=== PATIENT | male | born 1945 | race Caucasian/White ===

== ENCOUNTER → 2016-11-11 | Outpatient (CLI) | payer OTHER ==
[~2016-11-11] MED LIST: ASPI81TA28 PO; BNC20 PO; CHOL100010 PO; DEXL60CA4 PO; FEXO1TAB49 PO; FLM4 PO; LEVO100T PO; LEVO125T72 PO; MULT-506 PO; OMEG10007 PO; SIMV20TA2 PO
[2016-11-11 14:44] LABS: BASO % 0.4 %; BASO ABS # 0.02 K/uL (0-0.2); COMPLETE YES; HEMATOCRIT 43.2 % (42-52); IG% 0.2 %; LYMPH % 31.5 %; LYMPH ABS # 1.76 K/uL (1.2-3.4); MEAN CELL VOLUME 94.1 fL (80-100); MEAN CORPUSCULAR HEMOGLOBIN 32.2 pg (25-34); MEAN CORPUSCULAR HGB CONC 34.3 g/dl (32-36); MEAN PLATELET VOLUME 10.9 fL (7.4-10.4); MONO % 11.1 %; NEUT % 54.8 %; PLATELET COUNT 187 K/uL (130-400); RED BLOOD COUNT 4.59 M/uL (4.7-6.1); WHITE BLOOD COUNT 5.59 K/uL (4.8-10.8)
[2016-11-11 14:49] LABS: POTASSIUM 3.8 mmol/L (3.5-5.1)
[2016-11-11 14:54] LABS: PARTIAL THROMBOPLASTIN RATIO 0.9; PROTHROMBIN TIME (PATIENT) 10.7 SECONDS (9.0-12.0)
== END | disposition home or self-care (01) ==
LOC: C.LAB 13:30
DX: Z01.818 Encounter for other preprocedural examination (principal); K21.9 Gastro-esophageal reflux disease without esophagitis

== ENCOUNTER → 2016-11-28 | Day surgery (SDC) | payer OTHER ==
[2016-11-03 11:35] VITALS: Ht 181.6 cm; Wt 110.9 kg
[~2016-11-28] VITALS: Ht 181.6 cm; Wt 110.9 kg
[~2016-11-28] MED LIST changes: +ATROPINE SULFATE 0.1 MG/ML 5ML SYR IV PRN; +CEFAZOLIN 2000 MG/60 ML D5W IV SCH; +DEXAMETHASONE SOD INJ 4 MG/ML VIAL ONE; +EpHEDrine SULFATE INJ 50 MG/ML AMP IV PRN; +EpINEphrine INJ 1MG/ML AMP 1 MG/ML AMP ONE; +FENTANYL CITRATE INJ 50 MCG/1 ML 2 ML VIAL IV PRN; +FENTANYL CITRATE INJ 50 MCG/1 ML 2 ML VIAL ONE; +GLYCOPYRROLATE INJ 0.2 MG/ML VIAL ONE; +HYDROCODONE/ACETAMOPHEN 5/325MG TAB PO PRN; +HYDROmorphone INJ 1 MG/ML SYR IV PRN; +LACTATED RINGER'S 1000ML 1,000 ML IV SCH; +LIDOCAINE 4% MPF SOAK 5 ML = 1 DOSE TOP ONE; +LIDOCAINE HCL 2% 2 ML VIAL (20MG/ML) ONE; +LIDOCAINE/EPINEPHRINE 1% INJ 50 ML VIAL ONE; +MIDAZOLAM HCL 1 MG/ML 2ML VIAL ONE; +NEOSTIGMINE METHYLSULFATE 5 MG/5 ML SYR ONE; +ONDANSETRON INJ 2 MG/ML 2 ML VIAL IV PRN; +ONDANSETRON INJ 2 MG/ML 2 ML VIAL ONE; +OXYMETAZOLINE HCL 0.05% NA SPR 15 ML BTL NAE SCH; +OXYMETAZOLINE HCL 0.05% NA SPR 15 ML BTL PRN; +PROPOFOL IV EMULSION 10 MG/ML 20 ML VIAL IV ONE
--- NOTE | 2016-11-28 12:08 | History & Physical Bridge - [place] ---
H&P Re-Evaluation Bridge Note: I have examined the patient, reviewed the History & Physical and in the interval since the performance of the History & Physical I have noted the following changes of clinical significance: No changes noted
--- NOTE | 2016-11-28 12:29 | History and Physical: Surg Cnt ---
History & Physical Date Nov 28, 2016. Chief Complaint CHRONIC SINUSITIS, RIGHT SEPTAL DEVIATION, AND BILATERAL INFERIOR TURBINATE HYPERTROPHY History of Present Illness The patient is a 71 year old male with complaints of CHRONIC SINUSITIS, RIGHT SEPTAL DEVIATION, AND BILATERAL INFERIOR TURBINATE HYPERTROPHY WITH SYMPTOMS DESPITE MAXIMAL MEDICAL RX. PT S/P B FESS/SEPTOPLASTY BY ANOTHER SURGEON IN THE PAST. PT WITH POSSIBLE L SINONASAL POLYP ON EXAM. Past Medical/Surgical History Medical Problems: (1) Asthma (2) Hypertension SIMENTAL'S ESOPHAGITIS, GERD, H/O C DIFF COLITIS, ETD, MIXED HL, IRMA Surgical Problems: (1) History of thyroidectomy (2) History of tonsillectomy and adenoidectomy S/P B FESS/SEPTOPLASTY IN THE PAST Additional History Hepatic Disease: No Endocrine Disorder: No Kidney Disease: No Hypertension: No Heart Disease: No Bleeding Tendencies: No Infectious Diseases: No Allergies Coded Allergies: No Known Allergies (Unverified , UNKNOWN, 11/28/16) Home Medications Scheduled Aspirin (Aspirin Ec), 81 MG PO HS Cholecalciferol (Vitamin D), 1,000 INTER.UNIT PO QAM Dexlansoprazole (Dexilant), 1 CAP PO QPM Fish Oil (Edison-3), 1 CAP PO QAM Levothyroxine Sodium (Synthroid), 100 MCG PO AM Levothyroxine Sodium (Synthroid), 125 MCG PO QAM Multivitamin (Multivitamin), 1 TAB PO QAM Olmesartan Medoxomil (Benicar *), 20 MG PO QAM Simvastatin (Zocor), 20 MG PO QAM Tamsulosin Hcl (Flomax *), 0.4 MG PO BID Scheduled PRN Fexofenadine Hcl (Jie Allergy), 1 TAB PO DAILY PRN for ALLERGIC REACTION Physical Examination Eyes: normal inspection, EOMI, sclerae normal ENT: + pertinent finding (MILD R DNS, MODERATE B ITH, L POLYPOID MT) Head: normocephalic, atraumatic Neck: supple, no adenopathy, trachea midline Respiratory/Chest: lungs clear, normal breath sounds, no respiratory distress Cardiovascular: regular rate, rhythm, no edema, no murmur Diagnosis CHRONIC SINUSITIS, RIGHT SEPTAL DEVIATION, AND BILATERAL INFERIOR TURBINATE HYPERTROPHY Plan of Treatment REVISION IMAGE-GUIDED B FESS/SEPTOPLASTY/INFERIOR TURBINATE REDUCTION
--- NOTE | 2016-11-28 14:03 | [facility] Operative Report ---
Operative Report Operative Date Nov 28, 2016. Pre-Operative Diagnosis Chronic Sinusitis; Nasal Polyps; Hypertrophy of Nasal Turbnates Post-Operative Diagnosis Same Procedure(s) Performed Revision Image Guided Bilateral Endoscopic Sinus Surgery, Bilateral Inferior Turbinate Outfracture And Turbinoplasty Surgeon Dr. Doan Supervisor Steno Pool Surgeon(s) None Estimated Blood Loss 100 mL Findings 1. L MIDDLE TURBINATE LARGELY REPLACED BY POLYP/POLYPOID TISSUE BLOCKING L MAXILLARY ANTROSTOMY AND L TAMIKO 2. R MIDDLE TURBINATE ADHESION TO R MAXILLARY ANTROSTOMY 3. R MAXILLARY SINUS MUCUS RETENTION CYST 4. MILD R DNS 5. MODERATE B ITH Specimens A. Left Middle Turbinate Polyp B. Right Maxillary Sinus Contents I attest to the content of the Intraoperative Record and any orders documented therein. Any exceptions are noted below.
[2016-11-28 14:40] VITALS: TEMP 36.7
--- NOTE | 2016-11-28 14:53 | Anesthesia Progress Nt - [facility] ---
Anesthesia Post Op Note Date & Time Nov 28, 2016 at 14:53 Vital Signs Pain Intensity: 0 Vital Signs Past 12 Hours Date Time Temp Pulse Resp B/P (MAP) Pulse Ox O2 Delivery O2 Flow Rate FiO2 11/28/16 14:40 36.7 61 18 144/80 (101) 95 Room Air 11/28/16 14:32 57 16 96 11/28/16 14:32 59 16 11/28/16 14:31 144/78 11/28/16 14:30 36.8 64 16 144/78 95 Room Air 11/28/16 14:29 62 13 11/28/16 14:29 61 13 95 11/28/16 14:28 63 13 96 11/28/16 14:28 63 13 11/28/16 14:26 142/76 11/28/16 14:23 65 18 97 11/28/16 14:23 65 18 11/28/16 14:22 62 10 97 11/28/16 14:22 62 10 11/28/16 14:21 142/76 11/28/16 14:20 63 13 11/28/16 14:20 64 13 98 11/28/16 14:19 64 24 11/28/16 14:19 65 24 99 11/28/16 14:16 146/82 11/28/16 14:14 68 17 100 11/28/16 14:14 64 17 11/28/16 14:13 67 15 11/28/16 14:13 65 15 100 11/28/16 14:11 147/74 11/28/16 14:08 69 10 11/28/16 14:08 70 10 98 11/28/16 14:07 72 18 11/28/16 14:07 72 18 98 11/28/16 14:06 72 11 98 11/28/16 14:06 74 11 11/28/16 14:01 85 12 11/28/16 14:01 82 12 162/71 97 11/28/16 13:57 159/80 11/28/16 13:56 99 11/28/16 13:56 99 94 11/28/16 13:56 36.6 96 16 159/80 97 Mask 6 11/28/16 09:45 36.5 64 16 145/86 (105) 96 Room Air Notes Mental Status: alert / awake / arousable, participated in evaluation Pt Amnestic to Procedure: Yes Nausea / Vomiting: adequately controlled Pain: adequately controlled Airway Patency, RR, SpO2: stable & adequate BP & HR: stable & adequate Hydration State: stable & adequate Anesthetic Complications: no major complications apparent
--- NOTE | 2016-11-28 14:54 | Discharge Instructions ---
Discharge Instructions Date of Service Nov 28, 2016. Admission Reason for Admission: Chronic Sinusitis, Nasal Polyps, Acquired Deviated Discharge Discharge Diagnosis / Problem: SAME Discharge Goals Goal(s): Therapeutic intervention Activity Recommendations Activity Limitations: as noted below 1. LIGHT ACTIVITY FOR 2 WEEKS 2. NO NOSE BLOWING FOR 2 WEEKS 3. NO DRIVING WHILE ON NORCO . Current Hospital Diet Patient's current hospital diet: Discharge Diet Recommended Diet: Regular Diet Procedures Procedures Performed: Revision Image Guided Bilateral Endoscopic Sinus Surgery, Bilateral Inferior Turbinate Outfracture And Turbinoplasty Pending Studies Studies pending at discharge: no Medical Emergencies . Who to Call and When: Medical Emergencies: If at any time you feel your situation is an emergency, please call 911 immediately. . Non-Emergent Contact Non-Emergency issues call your: Surgeon . . "Provider Documentation" section prepared by Logan Doan. . VTE Core Measure Inpt VTE Proph given/why not?: SCD's
[2016-11-28 15:04] VITALS: BP 139/76; PULSE 60; O2SAT 95
--- NOTE | 2016-11-28 17:08 | OPERATIVE REPORT ---
DATE OF OPERATION: 11/28/2016 PREOPERATIVE DIAGNOSES: 1. Chronic polypoid rhinosinusitis. 2. Septal deviation. 3. Bilateral inferior turbinate hypertrophy. 4. Large left sinonasal polyp. POSTOPERATIVE DIAGNOSES: 1. Chronic polypoid rhinosinusitis. 2. Septal deviation. 3. Bilateral inferior turbinate hypertrophy. 4. Large left sinonasal polyp. PROCEDURES: Forsake image guided endoscopic sinus surgery consisting of: 1. Left middle turbinate resection/nasal polypectomy. 2. Revision left maxillary antrostomy. 3. Revision right maxillary antrostomy with tissue removal. 4. Balloon sinuplasty assisted right frontal sinusotomy. 5. Bilateral inferior turbinate outfracture and turbinoplasty. SURGEON: Dr. Logan Doan. ANESTHESIA: General endotracheal. ESTIMATED BLOOD LOSS: 100 mL. FINDINGS: 1. Left middle turbinate largely replaced by polyp/polypoid tissue. 2. Fair amount of bleeding from the superior aspect of the left middle turbinate. 3. Previous left maxillary antrostomy blocked by left middle turbinate polypoid tissue and scar formation. 4. Right maxillary antrostomy blocked by adhesion between the right middle turbinate and lateral nasal wall. 5. Mild mucosal thickening involving the right frontal sinus. 6. Moderate bilateral inferior turbinate hypertrophy. 7. Mild right septal deviation, which was nonobstructive. SPECIMENS: 1. Left middle turbinate polyp for permanent pathologic assessment. 2. Right maxillary sinus contents for permanent pathological assessment. COMPLICATIONS: None. INDICATIONS FOR THE PROCEDURE: The patient is a pleasant 71-year-old male with a history of primarily left-sided sinonasal obstruction, which has been refractory to maximal medical therapy including systemic antibiotics and systemic steroids as well as his allergy treatment. He has a large polyp emanating from the left middle turbinate/replacing the middle turbinate, which seemed to block visualization of the left maxillary antrostomy in the office. A posttreatment CT scan of the sinuses showed a large middle turbinate polypoid mass, filling the majority of the left nasal cavity superiorly and also blocking the left frontal ethmoid recess. The patient also has mild right septal deviation and moderate bilateral inferior turbinate hypertrophy. He denies any right-sided nasal airway obstruction. He presents for the above-mentioned procedures on an outpatient elective basis. DESCRIPTION OF PROCEDURE: After informed consent had been obtained from the patient, the patient was wheeled to the operating room and placed on the operating table in the supine position. Monitors were placed. After induction of general endotracheal anesthesia, the patient was prepped in the usual fashion for image guided sinus surgery. The Whereoscope headset was placed over the forehead and was registered, calibrated, and verified and used for the right frontal sinus portion of the procedure as well as the left middle turbinate resection as well. A 0-degree rigid endoscope was inserted into the left nasal cavity and the left middle turbinate was largely replaced by a polypoid mass. The left middle turbinate was injected with 1% lidocaine with 1:100,000 epinephrine. Lidocaine and epinephrine pledget was then placed into the left nasal cavity. The right side was then addressed. A freer elevator was used to medialize the right middle turbinate, which had a dense adhesion between it and the lateral nasal wall, blocking the patient's previous right maxillary antrostomy. The right middle turbinate and lateral nasal wall were then injected with 1% lidocaine with 1:100,000 epinephrine. A lidocaine and epinephrine pledget was then placed into the right middle meatus. The left-sided pledget was removed. Using straight Javi-Cut forceps, the vast majority of the left middle turbinate was removed in its entirety and sent off for permanent pathological assessment. Of note, there was significant bleeding from the middle turbinate remnant superiorly and suction Bovie electrocautery was needed to achieve adequate hemostasis in this region. Attempts at cannulating the left frontal sinus after removal of the polyp were performed using image guidance, but it was difficult to cannulate the left frontal sinus and therefore, due to the bleeding and the difficulty in entering the left frontal sinus, this was not performed. Of note, the patient had a previous left maxillary antrostomy that was blocked by the polypoid tissue, which opened up as soon as this tissue was removed. However, there was significant polypoid tissue emanating off the posterior aspect of the maxillary sinus and entering into the nasal cavity and a left revision maxillary antrostomy was performed using powered instrumentation with care to remove most of this polypoid tissue. Some small remnant of this tissue was left posteriorly for fear of causing bleeding from the left sphenopalatine artery. Lidocaine and epinephrine pledget was then placed into the left ethmoid cavity. The right-sided pledget was removed. The patient had a previous right maxillary antrostomy, but this was partially blocked as discussed before by the adhesion between the right middle turbinate. The right middle turbinate inferiorly was partially resected to prevent this from occurring in the future. This was performed using powered instrumentation. Also, there was a likely mucous retention cyst involving the medial wall of the maxillary sinus and this was removed using a 45-degree Blakesley forceps and the tissue was sent off for permanent pathological assessment. The inferior and posterior aspects of the previous right maxillary antrostomy were enlarged using powered instrumentation. A frontal sinus suction was then used to cannulate the right frontal sinus. After this was then removed, a #6 frontal sinus balloon was inserted into the frontal sinus and inflated to 12 atmospheres of pressure at 2 different locations to dilate the right frontal recess tract. Powered instrumentation was then used to remove a small amount of polypoid tissue that was blocking the right frontal ethmoid recess. The decision was made not to perform a septoplasty due to the patient's bleeding from the left hand side earlier, but also due to the fact that the patient denied any nasal airway obstruction on the right side and his septal deviation did not preclude me from doing endoscopic sinus surgery on the right hand side. There was only mild anterosuperior septal deviation, which was likely not causing any nasal airway obstruction. A Sosa elevator was then used to infracture and subsequently outfracture the inferior turbinates bilaterally. The inferior turbinates were injected with 1% lidocaine with 1:100,000 epinephrine. A 2.0-mm turbinate blade using powered instrumentation was then used to perform bilateral inferior turbinoplasties in a submucosal fashion. The sinonasal cavities and nasopharynx were then suctioned. Merogel was then placed into the bilateral ethmoid sinuses and right middle meatus. An orogastric tube was placed and the stomach was suctioned free of air and stomach contents. This marked the end of the case. The patient tolerated the procedure well. There were no apparent complications. The patient was extubated and transferred to recovery room in stable condition. I attest to the content of the Intraoperative Record and any orders documented therein. Any exception s are noted below.
== END | disposition home or self-care (01) ==
LOC: X.SURG 09:28
DX: J32.9 Chronic sinusitis, unspecified (principal); J34.2 Deviated nasal septum; J34.3 Hypertrophy of nasal turbinates; G47.33 Obstructive sleep apnea (adult) (pediatric); J34.89 Other specified disorders of nose and nasal sinuses; J33.8 Other polyp of sinus; J45.909 Unspecified asthma, uncomplicated; I10 Essential (primary) hypertension; E66.9 Obesity, unspecified; Z90.89 Acquired absence of other organs; Z79.82 Long term (current) use of aspirin; Z79.899 Other long term (current) drug therapy

== ENCOUNTER → 2016-12-20 | Outpatient (CLI) | payer OTHER ==
[~2016-12-20] MED LIST changes: -ASPI81TA28 PO; -ATROPINE SULFATE 0.1 MG/ML 5ML SYR IV PRN; -CEFAZOLIN 2000 MG/60 ML D5W IV SCH; -DEXAMETHASONE SOD INJ 4 MG/ML VIAL ONE; -EpHEDrine SULFATE INJ 50 MG/ML AMP IV PRN; -EpINEphrine INJ 1MG/ML AMP 1 MG/ML AMP ONE; -FENTANYL CITRATE INJ 50 MCG/1 ML 2 ML VIAL IV PRN; -FENTANYL CITRATE INJ 50 MCG/1 ML 2 ML VIAL ONE; -GLYCOPYRROLATE INJ 0.2 MG/ML VIAL ONE; -HYDROCODONE/ACETAMOPHEN 5/325MG TAB PO PRN; -HYDROmorphone INJ 1 MG/ML SYR IV PRN; -LACTATED RINGER'S 1000ML 1,000 ML IV SCH; -LIDOCAINE 4% MPF SOAK 5 ML = 1 DOSE TOP ONE; -LIDOCAINE HCL 2% 2 ML VIAL (20MG/ML) ONE; -LIDOCAINE/EPINEPHRINE 1% INJ 50 ML VIAL ONE; -MIDAZOLAM HCL 1 MG/ML 2ML VIAL ONE; -NEOSTIGMINE METHYLSULFATE 5 MG/5 ML SYR ONE; -OMEG10007 PO; -ONDANSETRON INJ 2 MG/ML 2 ML VIAL IV PRN; -ONDANSETRON INJ 2 MG/ML 2 ML VIAL ONE; -OXYMETAZOLINE HCL 0.05% NA SPR 15 ML BTL NAE SCH; -OXYMETAZOLINE HCL 0.05% NA SPR 15 ML BTL PRN; -PROPOFOL IV EMULSION 10 MG/ML 20 ML VIAL IV ONE
--- NOTE | 2016-12-22 09:08 | Pulmonary Function Report ---
Pulmonary Function Report [f__Service__Date/Time] Pulmonary Function Report: Pre bronchodilator spirometry is well within normal limits. There was no significant response to bronchodilator shown. This should not preclude a therapeutic trial if clinically warranted. Lung volumes and diffusion capacity were well within normal limits. Clinical correlation is needed.
== END | disposition home or self-care (01) ==
LOC: C.RC 09:52
PROVIDERS: ATTEND Physician Assistant
DX: J45.909 Unspecified asthma, uncomplicated (principal)